=== PATIENT | female | born 1985 | race Caucasian/White ===

== ENCOUNTER 2020-11-20 10:11 | Emergency (ER) | payer MEDICAID ==
[~2020-11-20] VITALS: Ht 162.6 cm; Wt 86.0 kg
[2020-11-20] MEDS ORDERED: LORAZEPAM 0.5MG TABLET PO ONE (11:30)
[2020-11-20] MEDS ORDERED: SODIUM CHLORIDE 0.9% 1,000 ML IV ONE (11:30)
[2020-11-20 12:21] LABS: BASOPHILS % 0.4 % (0.0-2.0); EOSINOPHILS % 1.4 % (0.0-5.0); HEMATOCRIT. 40.9 % (36.0-48.0); HEMOGLOBIN. 13.9 g/dL (12.0-16.0); LYMPHOCYTES % 23.4 % (20.0-50.0); MEAN CORPUSCULAR HEMOGLOBIN 27.4 pg (28.0-32.0); MEAN CORPUSCULAR VOLUME 80.8 fL (81.0-99.0); MEAN PLATELET VOLUME 8.4 fl (7.4-10.4); MONOCYTES % 5.3 % (2.0-8.0); NEUTROPHILS % 69.5 % (40.0-76.0); PLATELET 330 x1000/uL (130-400); RED BLOOD CELL COUNT 5.06 mill/uL (4.2-5.4)
[2020-11-20 12:23] LABS: CLARITY URINE CLEAR (CLEAR); COLOR URINE YELLOW (YELLOW); KETONES URINE NEGATIVE (NEGATIVE); LEUKOCYTE ESTERASE URINE NEGATIVE (NEGATIVE); NITRITE URINE NEGATIVE (NEGATIVE); OCCULT BLOOD URINE NEGATIVE (NEGATIVE); PH URINE 6.5 (4.5-8.0); PROTEIN URINE NEGATIVE (NEGATIVE); SPECIFIC GRAVITY URINE 1.015 (1.005-1.030); UROBILINOGEN URINE 0.2 E.U./dL (0.2-1.0)
[2020-11-20 12:27] LABS: CHLORIDE 105 mEq/L (98-107)
[2020-11-20 13:25] VITALS: BP 134/86
== END 2020-11-20 13:37 | disposition home or self-care (01) ==
LOC: ER 10:27
DX: R07.2 Precordial pain (principal); E05.90 Thyrotoxicosis, unspecified without thyrotoxic crisis or storm; I10 Essential (primary) hypertension; F41.9 Anxiety disorder, unspecified; E03.9 Hypothyroidism, unspecified; F12.10 Cannabis abuse, uncomplicated; E86.0 Dehydration
CPT/HCPCS: 36415; 71045; 80053; 81003; 81025; 85025; 93005; 96360; 99285; J7030; Z7610

== ENCOUNTER 2020-11-27 07:13 | Emergency (ER) | payer MEDICAID ==
[~2020-11-27] VITALS: Ht 160 cm; Wt 86.0 kg
[2020-11-27] MEDS ORDERED: DIPHENHYDRAMINE 50MG CAPSULE PO STA (08:11)
[2020-11-27] MEDS ORDERED: LORAZEPAM 2MG/ML CPJ IV STA (08:11)
[2020-11-27] MEDS ORDERED: SODIUM CHLORIDE 0.9% 1,000 ML IV ONE (08:15)
[2020-11-27] MEDS ORDERED: DIPHENHYDRAMINE 50MG/ML VIAL IV ONE (08:15)
[2020-11-27 08:33] LABS: BASOPHILS % 0.6 % (0.0-2.0); EOSINOPHILS % 1.1 % (0.0-5.0); HEMATOCRIT. 41.9 % (36.0-48.0); LYMPHOCYTES % 27.2 % (20.0-50.0); MEAN CORPUSCULAR HEMOGLOBIN 27.2 pg (28.0-32.0); MEAN CORPUSCULAR VOLUME 81.5 fL (81.0-99.0); MEAN PLATELET VOLUME 8.2 fl (7.4-10.4); MONOCYTES % 6.7 % (2.0-8.0); NEUTROPHILS % 64.4 % (40.0-76.0); PLATELET 279 x1000/uL (130-400); RED BLOOD CELL COUNT 5.14 mill/uL (4.2-5.4); RED CELL DISTRIBUTION WIDTH 13.3 % (11.6-14.6)
[2020-11-27 08:40] LABS: CLARITY URINE CLOUDY (CLEAR); COLOR URINE YELLOW (YELLOW); KETONES URINE NEGATIVE (NEGATIVE); LEUKOCYTE ESTERASE URINE 1+ (NEGATIVE); NITRITE URINE NEGATIVE (NEGATIVE); OCCULT BLOOD URINE NEGATIVE (NEGATIVE); PROTEIN URINE NEGATIVE (NEGATIVE); SPECIFIC GRAVITY URINE 1.017 (1.005-1.030)
[2020-11-27 08:41] LABS: CHLORIDE 106 mEq/L (98-107)
[2020-11-27 08:45] LABS: ETHANOL BLOOD < 10 mg/dL
[2020-11-27 08:57] LABS: *AMPHETAMINES SCREEN URINE NEGATIVE (NEGATIVE); *BARBITURATES SCREEN URINE NEGATIVE (NEGATIVE); *BENZODIAZEPINES SCREEN URINE NEGATIVE (NEGATIVE); *COCAINE SCREEN URINE NEGATIVE (NEGATIVE); METHADONE URINE SCREEN NEGATIVE (NEGATIVE); OPIATES URINE SCREEN NEGATIVE (NEGATIVE); PHENCYCLIDINE URINE SCREEN NEGATIVE (NEGATIVE)
[2020-11-27 09:00] LABS: HCG SCREEN NEGATIVE
[2020-11-27 09:13] LABS: CANNABINOID URINE SCREEN NEGATIVE (NEGATIVE)
[2020-11-27 10:55] VITALS: BP 147/99
== END 2020-11-27 11:05 | disposition home or self-care (01) ==
LOC: ER 07:33
DX: F41.0 Panic disorder [episodic paroxysmal anxiety] (principal); I10 Essential (primary) hypertension; E03.9 Hypothyroidism, unspecified
CPT/HCPCS: 36415; 80053; 80305; 80307; 80320; 80329; 81003; 84443; 84703; 85025; 96361; 96374; 96375; 99284; J1200; J2060; J7030; Q0163; G0480

== ENCOUNTER 2023-03-11 01:04 | Emergency (ER) | payer MEDICAID, OTHER ==
[~2023-03-11] VITALS: Ht 160 cm; Wt 86.6 kg
[2023-03-11 01:11] VITALS: BP 154/96; PULSE 114; RESP 18; TEMP 98.6; O2SAT 98
== END 2023-03-11 01:56 | disposition home or self-care (01) ==
LOC: ER 01:14
DX: Z00.00 Encounter for general adult medical examination without abnormal findings (principal); Z68.33 Body mass index [BMI] 33.0-33.9, adult; Z86.39 Personal history of other endocrine, nutritional and metabolic disease
CPT/HCPCS: 99281

== ENCOUNTER 2023-03-25 12:39 | Emergency (ER) | payer OTHER ==
[~2023-03-25] VITALS: Ht 160 cm; Wt 95.0 kg
[2023-03-25 12:51] VITALS: O2SAT 100
[2023-03-25 13:21] LABS: BASOPHILS % 0.3 % (0.0-2.0); DIFFERENTIAL COMMENT 0; EOSINOPHILS % 0.3 % (0.0-5.0); HEMATOCRIT. 39.7 % (36.0-48.0); HEMOGLOBIN. 12.8 g/dL (12.0-16.0); LYMPHOCYTES % 20.5 % (20.0-50.0); MEAN CORPUSCULAR HEMOGLOBIN 25.1 pg (28.0-32.0); MEAN CORPUSCULAR HGB CONC 32.4 g/dL (31.0-37.0); MEAN CORPUSCULAR VOLUME 77.5 fL (81.0-99.0); MEAN PLATELET VOLUME 8.2 fl (7.4-10.4); NEUTROPHILS % 74.9 % (40.0-76.0); PLATELET 363 x1000/uL (130-400); RED BLOOD CELL COUNT 5.12 mill/uL (4.2-5.4); RED CELL DISTRIBUTION WIDTH 15.4 % (11.6-14.6)
[2023-03-25 13:31] LABS: CHLORIDE 105 mEq/L (98-107); INDEX HEMOLYSI 1 (1-3); INDEX ICTERIC 1 (1-4); INDEX LIPEMIC 1 (1-3); POTASSIUM 3.9 mEq/L (3.5-5.1); SODIUM 136 mEq/L (136-145)
[2023-03-25 13:51] LABS: ALANINE AMINOTRANSFERASE 180 IU/L (13-61); ALBUMIN 3.8 g/dL (3.4-5.0); ASPARTATE AMINOTRANSFERASE 92 IU/L (15-37); BILIRUBIN TOTAL 0.6 mg/dL (0.1-1.0); CALCIUM 9.2 mg/dL (8.5-10.1); CARBON DIOXIDE 29 mEq/L (21-32); CREATININE 0.7 mg/dL (0.6-1.3); ETHANOL BLOOD < 10 mg/dL (-10); GLUCOSE 135 mg/dL (70-105); HCG SCREEN NEGATIVE; PROTEIN TOTAL 8.6 g/dL (6.0-8.3); UREA NITROGEN BLOOD 7 mg/dL (7-21)
[2023-03-25 17:52] LABS: CLARITY URINE CLEAR (CLEAR); COLOR URINE YELLOW (YELLOW); GLUCOSE URINE NEGATIVE (NEGATIVE); KETONES URINE NEGATIVE (NEGATIVE); LEUKOCYTE ESTERASE URINE NEGATIVE (NEGATIVE); NITRITE URINE NEGATIVE (NEGATIVE); OCCULT BLOOD URINE NEGATIVE (NEGATIVE); PH URINE 6.5 (4.5-8.0); PROTEIN URINE TRACE (NEGATIVE); SPECIFIC GRAVITY URINE 1.017 (1.005-1.030)
[2023-03-25 18:12] LABS: *AMPHETAMINES SCREEN URINE NEGATIVE (NEGATIVE); *BARBITURATES SCREEN URINE NEGATIVE (NEGATIVE); *BENZODIAZEPINES SCREEN URINE NEGATIVE (NEGATIVE); *COCAINE SCREEN URINE NEGATIVE (NEGATIVE); CANNABINOID URINE SCREEN NEGATIVE (NEGATIVE); METHADONE URINE SCREEN NEGATIVE (NEGATIVE); OPIATES URINE SCREEN NEGATIVE (NEGATIVE); PHENCYCLIDINE URINE SCREEN NEGATIVE (NEGATIVE)
[2023-03-25 18:18] LABS: ECSTASY MDMA SCREEN URINE CONF.TEST INDICATED (NEGATIVE)
[2023-03-25 18:53] LABS: BACTERIA URINE 2+; RBC URINE 0-2 /hpf (0-2); SQUAMOUS EPITHELIAL CELL URINE FEW /lpf (RARE/1+); WBC URINE 0-2 /hpf (0-2); YEAST URINE NONE SEEN
[2023-03-26] MEDS ORDERED: DIPHENHYDRAMINE 25MG CAPSULE PO NR ×2 (02:00→21:00)
[2023-03-26] MEDS ORDERED: DIPHENHYDRAMINE 50MG CAPSULE PO ONE (02:00)
[2023-03-26] MEDS ORDERED: SERTRALINE HCL 25MG TABLET PO SCH (13:15)
[2023-03-27 07:00] VITALS: BP 161/84; PULSE 83; RESP 20; TEMP 97.9
== END 2023-03-27 07:09 ==
LOC: ER 12:39
DX: R45.851 Suicidal ideations (principal); Z20.822 Contact with and (suspected) exposure to COVID-19; F41.9 Anxiety disorder, unspecified; F32.9 Major depressive disorder, single episode, unspecified; E05.90 Thyrotoxicosis, unspecified without thyrotoxic crisis or storm
CPT/HCPCS: 80053; 80305; 81003; 80320; 84703; 84443; 85025; 36415; 99285; 87426; 84481; C9803; Q0163; G0480

== ENCOUNTER 2023-04-10 09:06 | Emergency (ER) | payer OTHER ==
[~2023-04-10] VITALS: Ht 160 cm; Wt 91.0 kg
[2023-04-10 09:21] VITALS: O2SAT 97
[2023-04-10 10:18] LABS: BASOPHILS % 0.6 % (0.0-2.0); DIFFERENTIAL COMMENT 0; EOSINOPHILS % 1.7 % (0.0-5.0); HEMATOCRIT. 39.5 % (36.0-48.0); HEMOGLOBIN. 12.7 g/dL (12.0-16.0); LYMPHOCYTES % 25.4 % (20.0-50.0); MEAN CORPUSCULAR HEMOGLOBIN 25.1 pg (28.0-32.0); MEAN CORPUSCULAR HGB CONC 32.2 g/dL (31.0-37.0); MEAN PLATELET VOLUME 8.3 fl (7.4-10.4); NEUTROPHILS % 66.3 % (40.0-76.0); PLATELET 318 x1000/uL (130-400); RED BLOOD CELL COUNT 5.06 mill/uL (4.2-5.4); RED CELL DISTRIBUTION WIDTH 15.9 % (11.6-14.6); WHITE BLOOD COUNT 11.4 x1000/uL (4.5-11.0)
[2023-04-10 10:19] LABS: CALCIUM 9.5 mg/dL (8.5-10.1); CHLORIDE 104 mEq/L (98-107); INDEX HEMOLYSI 1 (1-3); INDEX ICTERIC 1 (1-4); INDEX LIPEMIC 1 (1-3); POTASSIUM 4.2 mEq/L (3.5-5.1); SODIUM 136 mEq/L (136-145)
[2023-04-10] MEDS ORDERED: ARIPIPRAZOLE 5MG TABLET PO ONE (10:30)
[2023-04-10 10:34] LABS: ACETAMINOPHEN <2 ug/mL ug/mL (10-30); ALANINE AMINOTRANSFERASE 97 IU/L (13-61); ALBUMIN 3.7 g/dL (3.4-5.0); ASPARTATE AMINOTRANSFERASE 43 IU/L (15-37); BILIRUBIN TOTAL 0.4 mg/dL (0.1-1.0); CARBON DIOXIDE 27 mEq/L (21-32); CREATININE 0.6 mg/dL (0.6-1.3); ETHANOL BLOOD < 10 mg/dL (-10); GLUCOSE 135 mg/dL (70-105); PROTEIN TOTAL 8.7 g/dL (6.0-8.3); UREA NITROGEN BLOOD 8 mg/dL (7-21)
[2023-04-10] MEDS: ARIPIPRAZOLE 5MG TABLET PO SCH ×2 (12:00→21:00)
[2023-04-10] MEDS: ARIPIPRAZOLE 2MG TABLET PO SCH ×2 (12:00→21:33)
[2023-04-10 13:16] LABS: CLARITY URINE CLOUDY (CLEAR); COLOR URINE YELLOW (YELLOW); GLUCOSE URINE 1+ (NEGATIVE); KETONES URINE NEGATIVE (NEGATIVE); LEUKOCYTE ESTERASE URINE TRACE (NEGATIVE); NITRITE URINE NEGATIVE (NEGATIVE); OCCULT BLOOD URINE NEGATIVE (NEGATIVE); PROTEIN URINE NEGATIVE (NEGATIVE); SPECIFIC GRAVITY URINE 1.013 (1.005-1.030); UROBILINOGEN URINE 0.2 E.U./dL (0.2-1.0)
[2023-04-10 13:52] LABS: SQUAMOUS EPITHELIAL CELL URINE RARE /lpf (RARE/1+)
[2023-04-10 13:53] LABS: BACTERIA URINE 1+
[2023-04-10 13:54] LABS: RBC URINE NONE SEEN /hpf (0-2); WBC URINE NONE SEEN /hpf (0-2)
[2023-04-11 00:53] LABS: *AMPHETAMINES SCREEN URINE NEGATIVE (NEGATIVE); *BARBITURATES SCREEN URINE NEGATIVE (NEGATIVE); *BENZODIAZEPINES SCREEN URINE NEGATIVE (NEGATIVE); *COCAINE SCREEN URINE NEGATIVE (NEGATIVE); CANNABINOID URINE SCREEN NEGATIVE (NEGATIVE); ECSTASY MDMA SCREEN URINE NEGATIVE (NEGATIVE); METHADONE URINE SCREEN NEGATIVE (NEGATIVE); OPIATES URINE SCREEN NEGATIVE (NEGATIVE); PHENCYCLIDINE URINE SCREEN NEGATIVE (NEGATIVE)
[2023-04-11] MEDS: ARIPIPRAZOLE 5MG TABLET PO SCH (09:24)
[2023-04-11] MEDS: HYDROXYZINE 25MG TABLET PO PRN ×2 (09:24→20:15)
[2023-04-11] MEDS: ARIPIPRAZOLE 2MG TABLET PO SCH (09:25)
[2023-04-11] MEDS ORDERED: BACITRACIN ZINC OINT UDPKT TOP ONE (13:00)
[2023-04-11 19:55] VITALS: BP 144/96; PULSE 97; RESP 16; TEMP 98.6
== END 2023-04-11 20:17 | disposition still patient (30) ==
LOC: ER 09:06
DX: R45.851 Suicidal ideations (principal); F41.9 Anxiety disorder, unspecified; F32.9 Major depressive disorder, single episode, unspecified; E05.90 Thyrotoxicosis, unspecified without thyrotoxic crisis or storm; Z20.822 Contact with and (suspected) exposure to COVID-19
CPT/HCPCS: 80053; 80305; 81003; 80307; 80329; 80320; 84443; 85025; 36415; 99285; 87426; C9803; Z7610; G0480